=== PATIENT | female | born 1995 | race Caucasian/White ===

== ENCOUNTER 2017-10-11 18:29 | Emergency (ER) | payer MEDICAID | END 2017-10-11 21:15 | disposition home or self-care (01) | LOC: D.ER 18:29 | DX: H66.92 Otitis media, unspecified, left ear (principal); H92.02 Otalgia, left ear ==

== ENCOUNTER 2017-12-22 22:44 | Emergency (ER) | payer MEDICAID ==
[2017-12-22 23:18] LABS: APPEARANCE CLEAR (CLEAR); BILIRUBIN NEGATIVE (NEGATIVE); COLOR YELLOW (YELLOW); GLUCOSE NEGATIVE (NEGATIVE); KETONE SMALL mg/dL (NEGATIVE); NITRITE NEGATIVE (NEGATIVE); PROTEIN NEGATIVE (NEGATIVE); UROBILINOGEN NORMAL (NORMAL)
[2017-12-23 00:48] LABS: BASOPHILS 0.2 % (0-2); EOSINOPHILS 1.2 % (0-7); HEMATOCRIT 36.3 % (36.0-48.0); HEMOGLOBIN 12.7 g/dL (12-16); IMMATURE GRANULOCYTES 0.4 % (0-5); LYMPHOCYTES 22.4 % (15-50); MCH 31.9 pg (26.0-34.0); MCV 91.2 fL (80.0-100.0); MEAN PLATELET VOLUME 11.2 fL (7.4-10.4); MONOCYTES 5.9 % (2-11); NEUTROPHILS 69.9 % (40-80); PLATELET COUNT 195 10x3/uL (130-400); RBC 3.98 10x6/uL (4.00-5.40)
[2017-12-23 00:56] LABS: HCG SERUM POSITIVE (NEGATIVE)
[2017-12-23 01:18] LABS: ALBUMIN 3.5 g/dL (3.4-5.0); ALKALINE PHOSPHATASE 72 U/L (46-116); ALT (SGPT) 21 U/L (10-68); BILIRUBIN - TOTAL 0.36 mg/dL (0.2-1.3); CALC OSMOLALITY 276 mosm/kg (275-300); CALCIUM 8.7 mg/dL (8.5-10.1); CARBON DIOXIDE 24.2 mmol/L (21.0-32.0); CHLORIDE - SERUM 105 mmol/L (98-107); CREATININE - SERUM 0.7 mg/dL (0.6-1.3); GLUCOSE 99 mg/dL (74-106); SODIUM 139 mmol/L (136-145); UREA NITROGEN 10 mg/dL (7-18); eGFR NON AFRICAN AMERICAN > 90 mL/min (90-120)
[2017-12-23 01:38] LABS: HCG - QUANTITATIVE (MATERNAL) 25908 mIU/mL
== END 2017-12-23 02:10 | disposition home or self-care (01) ==
LOC: D.ER 22:44
PROVIDERS: Family Medicine
DX: O20.9 Hemorrhage in early pregnancy, unspecified (principal); Z3A.01 Less than 8 weeks gestation of pregnancy